=== PATIENT | male | born 1950 | race Caucasian/White ===

== ENCOUNTER 2018-09-22 10:06 | Emergency (ER) | payer OTHER ==
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
[2018-09-22 12:06] VITALS: BP 134/70
== END 2018-09-22 13:44 | disposition home or self-care (01) ==
LOC: EDUNIT#
DX: S29.019A Strain of muscle and tendon of unspecified wall of thorax, initial encounter (principal); M79.672 Pain in left foot; R20.0 Anesthesia of skin; V49.50XA Passenger injured in collision with unspecified motor vehicles in traffic accident, initial encounter; Y92.9 Unspecified place or not applicable; Y93.9 Activity, unspecified; Y99.9 Unspecified external cause status
CPT/HCPCS: 96374; J2270

== ENCOUNTER 2018-09-24 07:15 | Inpatient (IN) | payer OTHER ==
[2018-09-24] MEDS ORDERED: GABAPENTIN 300 MG CAP PO ONE (10:05)
[2018-09-24] MEDS ORDERED: ceFAZolin 2 GM/DEXTROSE 100 ML IV ONE (10:05)
[2018-09-24] MEDS ORDERED: ACETAMINOPHEN 500 MG TAB PO ONE (10:05)
[2018-09-24] MEDS ORDERED: LR 1,000 ML IV ONE (10:07)
[2018-09-24] MEDS ORDERED: BACITRACIN ZINC 14.2 GM OINTTUBE TP ONE (10:24)
[2018-09-24] MEDS ORDERED: EPINEPHrine 1 MG/ML INJ ONE (10:24)
[2018-09-24] MEDS ORDERED: BUPIVACAINE 0.25% 30 ML SDV ONE ×3 (10:24→20:20)
[2018-09-24] MEDS ORDERED: POVIDONE-IODINE 30 GM OINTTUBE TP ONE (10:24)
[2018-09-24] MEDS ORDERED: THROMBIN (BOVINE) 20,000 UNIT VIAL TP ONE ×2 (10:24→14:01)
[2018-09-24] MEDS ORDERED: CHLORHEXIDINE GLUC HIBICLENS 118 ML BTL TP ONE ×2 (10:24→19:09)
[2018-09-24] MEDS ORDERED: BACITRACIN 50,000 UNITS/10 ML SYR IRR ONE (10:25)
[2018-09-24] MEDS ORDERED: fentaNYL 100 MCG/2 ML INJ IV ONE (11:30)
--- NOTE | 2018-09-24 13:04 | PDHPUP ---
History & Physical Update H&P update statement: This history and physical update is based on an assessment of the patient which was completed after admission or registration (within 24 hours), but prior to the surgery/procedure. H&P update: H&P reviewed & patient examined, no change in patient's condition since H&P completed
[2018-09-24] MEDS ORDERED: MIDAZOLAM 2 MG/2 ML VIAL IVP ONE (13:05)
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
[2018-09-24] MEDS ORDERED: PROPOFOL/EMULSION 500 MG/50 ML BOTTLE IV ONE ×3 (13:47→18:29)
[2018-09-24] MEDS ORDERED: PROPOFOL 200 MG/20 ML VIAL ONE (13:47)
[2018-09-24] MEDS ORDERED: fentaNYL 100 MCG/2 ML INJ ONE ×3 (13:47→21:24)
[2018-09-24] MEDS ORDERED: REMIFENTANIL HCL 1 MG VIAL ONE ×3 (13:47→18:29)
[2018-09-24] MEDS ORDERED: CITRATE DEXTROSE SOLN 500 ML BAG ONE (14:47)
[2018-09-24] MEDS ORDERED: MAGNESIUM HYDROXIDE 30 ML UDCUP PO PRN (17:14)
[2018-09-24] MEDS ORDERED: ONDANSETRON 4 MG/2 ML VIAL IVP PRN ×2 (17:14→21:09)
[2018-09-24] MEDS ORDERED: BISACODYL 10 MG SUPP PR PRN (17:14)
[2018-09-24] MEDS ORDERED: ONDANSETRON DISINTEGRATING 4 MG TAB PO PRN (17:14)
[2018-09-24] MEDS ORDERED: diphenhydrAMINE 25 MG CAP PO PRN (17:14)
[2018-09-24] MEDS ORDERED: LACTULOSE 20 GM/30 ML UDCUP PO PRN (17:14)
[2018-09-24] MEDS ORDERED: NALOXONE HCL 0.4 MG/ML INJ IVP PRN ×2 (17:14→21:09)
[2018-09-24] MEDS ORDERED: NS 1,000 ML IV SCH (17:15)
--- NOTE | 2018-09-24 18:03 | PDMN ---
Medical Necessity Medical necessity: Pt meets inpt criteria per MD order and [facility] S- 330, Cervical Fusion, Posterior, Medicare inpt only list and Neurosurg GRG for Vertebral Corpectomy, also Medicare inpt only list. Pt underwent C3-C7 ant/post cervical fusion, C4/5 corpectomy, C6/7 ACDF.
[2018-09-24] MEDS ORDERED: FAMOTIDINE 20 MG TAB PO SCH (21:00)
[2018-09-24] MEDS ORDERED: fentaNYL 100 MCG/2 ML INJ IVP PRN (21:09)
[2018-09-24] MEDS ORDERED: DIAZEPAM 5 MG/ML 1 ML SYR IVP PRN (21:09)
[2018-09-24] MEDS ORDERED: PROMETHAZINE HCL 25 MG/ML INJ IVP PRN (21:09)
--- NOTE | 2018-09-24 21:37 | POSTOPPROG ---
Post Op Note Date of Operation: 09/24/18 Surgeon: Natalio Sandy Application Packager: Javier Soriano PA-C and Yanique Malone PA-C Anesthesiologist: Dr. Bee Anesthesia: GET(General Endotracheal) Pre-op Diagnosis: cervical stenosis Post-op Diagnosis: cervical stenosis Procedure: C4 and C5 corpectomy, ACDF C6/7, posterior C3-C7 fusion Inf/Abcess present in the surg proc area at time of surgery?: No Depth: Deep Incisional (Fascial) EBL: 500-1000 Drains: Davey Delacruz Plan Plan: 68 yo male s/p C4 and C5 corpectomy, ACDF C6/7, anterior plating C3-C7, and posterior C3-C7 fusion - neuro checks - pain control - hard collar - anterior and posterior BUSHRA drains to compression - postop x-rays tomorrow - SCDs, TEDs, lovenox to start POD#3 - PT/OT Exam Awake. Alert Following commands Strength full at 5/5 Sensation intact incisions with dressings c/d/i
[2018-09-24] MEDS ORDERED: HYDROmorphONE/DILAUDID 2 MG/ML INJ ONE (21:38)
--- NOTE | 2018-09-24 21:40 | POSTANESTH ---
Post Anesthetic Evaluation Cardiovascular Status: Normal, Stable Respiratory Status: Normal, Stable Level of Consciousness/Mental Status: Can Participate in Eval Pain Control: Inadeq, Add Tx Required Nausea/Vomiting Control: Adequate, Prn Tx Ordered Complications Possibly Related to Anesthesia: None Noted
[2018-09-24] MEDS: HYDROmorphONE/DILAUDID 2 MG/ML INJ IVP PRN ×5 (21:42→22:52)
[2018-09-24] MEDS ORDERED: DIAZEPAM 5 MG/ML 1 ML SYR ONE (22:02)
[2018-09-24] MEDS: morphINE PCA 30 MG/30 ML PCA IV PRN (23:25)
[2018-09-24] MEDS: POLYETHYLENE GLYCOL 3350 17 GM PKT PO SCH (23:47)
[2018-09-24] MEDS: ALLOPURINOL 100 MG TAB PO SCH (23:48)
[2018-09-25] MEDS ORDERED: VANCOMYCIN HCL/NORMAL SALINE 250 ML IV ONE
[2018-09-25] MEDS: FAMOTIDINE 20 MG TAB PO SCH ×2 (00:26→20:23)
[2018-09-25] MEDS: PREGABALIN 150 MG CAP PO SCH ×3 (00:26→20:23)
[2018-09-25] MEDS: morphINE SR 15 MG TAB PO SCH ×3 (00:26→20:23)
[2018-09-25] MEDS: SENNOSIDES/DOCUSATE SODIUM TAB PO SCH ×4 (00:35→20:12)
[2018-09-25] MEDS: METHOCARBAMOL 750 MG TAB PO PRN ×2 (01:49→06:46)
[2018-09-25] MEDS: DIAZEPAM 5 MG TAB PO PRN (02:56)
[2018-09-25] MEDS: oxyCODONE IR 5 MG TAB PO PRN ×2 (03:45→08:21)
[2018-09-25 05:40] LABS: PLATELET COUNT 239 10^3/uL (150-400)
--- NOTE | 2018-09-25 06:22 | GOP ---
DATE OF OPERATION: 09/24/2018 SURGEON: Natalio Sandy MD NEUROSURGEON: Natalio Sandy MD SOFTWARE DEVELOPER INTERN: 1. Javier Soriano, PAC. 2. Yanique Malone PAC. ANESTHESIA: General endotracheal. 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 PROCEDURE PERFORMED: Complete C3-C4, C4-C5, C5-C6, and C6-C7 anterior cervical diskectomy and arthro desis with complete C4 and C5 vertebral corpectomies and partial C3, C6, and C7 vertebral corpectomie s for decompression of spinal cord. Placement of structural spacers from C3 through C6 and at C6-C7. Use of intraoperative microscopy and fluoroscopy. FINDINGS: ESTIMATED BLOOD LOSS: 250 cc. INDICATIONS: The patient is a 68-year-old man with progressive myelopathic symptoms secondary to sev ere progressive kyphosis and spinal stenosis with spinal cord compression and retrolisthesis of multi ple vertebral bodies in the cervical spine. He presents now for surgical decompression, stabilizatio n, and realignment of his cervical spine. DESCRIPTION OF PROCEDURE: After informed consent was obtained, the patient was taken to the operatin g room and placed in the supine position with the head in the halter retractor system after baseline neuro monitoring signals were obtained. The anterior cervical region was prepped and draped in a stephanie rile fashion. After fluoroscopic localization of the correct levels, the subcutaneous and intramuscu lar tissues were infiltrated with local anesthesia. A horizontal linear incision was then created at the level of the C5 vertebral body. This was carried through the platysmal layer using the monopola r electrocautery and carried in the avascular plane between the sternocleidomastoid and carotid sheat h laterally and the strap muscles, trachea, and esophagus medially down to the prevertebral fascia, w hich was carefully incised with Metzenbaum scissors. There were extremely large osteophytes that req uired chiseling away at the spine and severely distorted anatomy. The double-action rongeurs, Kerris on rongeurs, and [employer] drill system were utilized to carefully remove these gigantic osteophytes, a nd even after removing these, the anatomy was very difficult to identify. In conjunction with x-ray, I was able to identify the C3-C4, C4-C5, and C5-C6 interspaces as well as the C6-C7 interspace, whic h was somewhat of an empty cavity at this point after taking away the osteophytes. I felt that it wa s in the best interest of the patient to include this in the anterior portion of the fusion. The dis traction pins were inserted from C3 through C6 along with the retractor and distraction created acros s the C3 to C6 levels. The disk spaces were carefully identified under microscopic visualization and drilled out and the complete corpectomy was performed at C4 and C5 with the rongeurs and massive flu janet vidya and coarse richardson vidya to control bleeding. It was necessary to undercut C3 and C6 and rem ove quite a bit of the vertebral bodies there, measuring approximately 50% of each, for partial C3 an d C6 vertebral corpectomies, as well. Eventually, the spinal canal and the spinal cord were thorough ly decompressed and a 44 mm structural PEEK spacer was placed from C3 to C6. This was packed with lo komal autograft from the corpectomy defect. Following this, the upper distraction pin was removed and a new distraction pin placed at C7 with distraction across the interspace and a complete diskectomy w as performed there with removal of the posterior longitudinal ligament, as was done at the upper leve ls. The endplates were prepared and a lordotic curve was recreated and the interspace was packed wit h a 12 mm structural PEEK interbody spacer. The distraction was removed and an appropriately sized L and K CastleLoc-P anterior cervical plate was then placed and secured from C3 to C7 with self-drilli ng screws. After reverification of good position of the plate screws and interbody spacers using bip lanar fluoroscopy, the locking mechanisms were engaged. The wound was reinfiltrated with local anest hesia. A drain was placed and the wound was closed in a layered fashion using interrupted Vicryl sut ures followed by Steri-Strips on the skin. COMPLICATIONS: None. DISPOSITION: The patient was repositioned prone for the posterior portion of the operation. /[id number]/MODL
--- NOTE | 2018-09-25 06:32 | GOP ---
DATE OF OPERATION: 09/24/2018 SURGEON: Natalio Sandy MD NEUROSURGEON: Natalio Sandy MD SEWER PIPE LAYER HELPER: MARLEY Randle ANESTHESIA: General endotracheal. 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 PROCEDURE PERFORMED: C3 through T1 posterior segmental (lateral mass and pedicle screw) fixation and posterolateral fusion from C3 to T1 with local autograft and bone morphogenic protein. Use of intra operative microscopy and fluoroscopy and computer volumetric stereotactic navigation. FINDINGS: ESTIMATED BLOOD LOSS: 150 cc. INDICATIONS: The patient is a 68-year-old man with progressive myelopathic symptoms secondary to sev ere progressive kyphosis and spinal stenosis with spinal cord compression and retrolisthesis of multi ple vertebral bodies in the cervical spine. He presents now for surgical decompression, stabilizatio n, and realignment of his cervical spine. DESCRIPTION OF PROCEDURE: After the anterior portion of the procedure was completed, the patient was repositioned prone in the radiolucent Allison bolt header. The posterior cervical region was prepp ed and draped in a sterile fashion. After fluoroscopic localization of the correct levels, the subcu taneous and intramuscular tissues were infiltrated with local anesthesia. A midline linear incision was then created from approximately C3 to C7. This was carried down to the fascial layer, which was then incised using monopolar electrocautery and carried in the subperiosteal plane along the spinous processes and lamina bilaterally. After reverifying the correct levels, the dissection was carried o ut over the facet joints and lateral masses. The C7 to T1 level was noted to be very degenerated and I felt that it was in the best interest of the patient to expose down to T1 and include this in the fusion so as to prevent a junctional kyphosis and reoperation in the short term. This was exposed an d the O-arm neuronavigational system was brought in. Using computer volumetric stereotactic navigati on, lateral mass screws were placed from C3 to C6 and pedicle screws at C7 and T1. After reverifying good position of the screws using intraoperative neurophysiologic testing with monopolar electrostim ulation and interpretation of the potentials by the surgeon along with 3D reconstructed images from t he O-arm, the remaining lamina and facet joints and lateral masses were extensively decorticated and the local autograft from the drilling along with the residual local autograft from the anterior cervi komal procedure/corpectomies and bone morphogenic protein was utilized to perform a posterolateral fusi on from C3 to T1. A drain was then placed and the subcutaneous and intramuscular tissues were reinfi ltrated with local anesthesia. The wound was then closed in a layered fashion using interrupted Vicr yl and running Mersilene suture and Steri-Strips on the skin. COMPLICATIONS: None. DISPOSITION: The patient is currently in the process of being repositioned for extubation. /[id number]/MODL
--- NOTE | 2018-09-25 07:31 | SOAPPROG ---
SOAP Progress Note Assessment/Plan: Assessment: 68 yo male POD #1 sp C4/5 corpectomy and C3-7 ACDF and C3-7 Post decomp/fusion. Doing well Plan: Continue SDU. COntinue Hard collar and both BUSHRA drains Xrays today Advance diet to soft texture Continue BACK CLOSER Discussed with Dr. Miles 09/25/18 07:32 Subjective: awake, alert, pain well controlled this AM States he has new tingling in middle fingers of right hand, otherwise no changes didn't fall asleep until 0430 Objective: Vital Signs Temp Pulse Resp BP Pulse Ox 37.2 C 76 18 139/67 H 98 09/24/18 23:29 09/25/18 04:01 09/25/18 04:01 09/25/18 04:01 09/25/18 04:01 Laboratory Results 09/25/18 05:25 09/25/18 05:25 09/24/18 09/25/18 09/26/18 05:59 05:59 05:59 Intake Total 5651 Output Total 1940 370 Balance 3711 -370 Neuro: A+ox4 follows commands CHAPA, sens +LT 5/5 bilat upper/lower ext BUSHRA: ANT: 145 ml since surgery BUSHRA POST:165 since surgery ICD10 Worksheet Patient Problems: Problems Problem Status Onset Cervical stenosis of spinal canal Acute Cervical stenosis of spinal canal Acute - ICD10 Problem Qualifiers (1) Cervical stenosis of spinal canal (2) Cervical stenosis of spinal canal
[2018-09-25] MEDS: morphINE PCA 30 MG/30 ML PCA IV PRN ×2 (07:37→20:34)
[2018-09-25] MEDS: PANTOPRAZOLE SODIUM 40 MG TAB PO SCH (08:21)
[2018-09-25] MEDS: ALLOPURINOL 100 MG TAB PO SCH ×2 (08:21→22:44)
[2018-09-25] MEDS: POLYETHYLENE GLYCOL 3350 17 GM PKT PO SCH ×3 (08:51→20:04)
[2018-09-25] MEDS: FENOFIBRATE 145 MG TAB PO SCH (11:35)
[2018-09-25] MEDS: morphINE SR 30 MG TAB PO SCH (12:26)
--- NOTE | 2018-09-25 15:31 | ASMTCASEMG ---
Living Arrangements What is your living Answers: With Spouse arrangement? Who do you live with? Type Of Residence What kind of residence do Answers: House you live in? 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 He was admitted for surgical decompression, stabilzation, and realignment of his cervical spine. OT/PT ordered. Patient is a and states he has a claim number from [facility] to cover his [facility] and post op services. Financial services was notified. D/C plan TBD. CM will follow. Date Signed: 09/25/2018 03:31 PM Electronically Signed By:Josi Maynard LCSW
--- NOTE | 2018-09-25 16:01 | ASMTCMCOM ---
CM Note CM Note Notes: Mercedes from [facility] called to let us know she follows this patient. Her number is [phone]. She tries to visit the veterans she works with while they are in the hospital and offered to assist with coordination of care. Mercedes says patient has a P[facility], [facility] but he mostly just makes referrals for care. [facility] has approved home care agencies they use. [facility] at [phone] is one he has used in the past. Mercedes is hoping however, patient will qualify for rehab programs. CM will follow. Date Signed: 09/25/2018 04:00 PM Electronically Signed By:Josi Maynard LCSW
[2018-09-26] MEDS: SENNOSIDES/DOCUSATE SODIUM TAB PO SCH ×2 (07:41→21:15)
[2018-09-26] MEDS: ALLOPURINOL 100 MG TAB PO SCH (07:41)
[2018-09-26] MEDS: PANTOPRAZOLE SODIUM 40 MG TAB PO SCH (07:41)
[2018-09-26] MEDS: FENOFIBRATE 145 MG TAB PO SCH (07:41)
[2018-09-26] MEDS: morphINE SR 15 MG TAB PO SCH (07:42)
[2018-09-26] MEDS: POLYETHYLENE GLYCOL 3350 17 GM PKT PO SCH ×2 (07:42→16:01)
[2018-09-26] MEDS: oxyCODONE IR 5 MG TAB PO PRN ×5 (07:43→21:44)
[2018-09-26] MEDS: METHOCARBAMOL 750 MG TAB PO PRN ×3 (07:43→21:44)
[2018-09-26] MEDS: PREGABALIN 150 MG CAP PO SCH ×2 (07:43→21:45)
--- NOTE | 2018-09-26 08:37 | NEUSURGPN ---
Date of Surgery: 09/24/18 Post Op Day: 2 Assessment/Plan: Assessment: 68 yo male POD #2 sp C4/5 corpectomy and C3-7 ACDF and C3-7 Post decomp/fusion. 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 Miles Subjective: Having posterior neck pain Objective: AxO x3 CHAPA x4 5/5 BUE, BLE Dressings x2 CDI BUSHRA x2 patent Collar in place Neuro Check Frequency: per routine Urinary Catheter in Place: No Catheter Insertion Date: 09/24/18 - Physician Discussed Patient with DrTracey: Vika Neurosurgery Physical Exam - Vitals, I&O, Labs I and O 09/25/18 09/26/18 09/27/18 05:59 05:59 05:59 Intake Total 5651 Output Total 1940 1400 250 Balance 3711 -1400 -250 Weight 78.925 kg Intake: Oral (ml) 410 IV Intake (ml) 4600 IV Infused (ml) 641 Ns 1,000 ml @ 75 mls/hr 391 IV CONT ROBEL Rx#: [id number] Vancomycin HCl/Normal 250 Saline 250 ml @ 250 mls/ hr IV ONCE ONE Rx#: [id number] Output: Urine (ml) 450 1200 250 Catheter 450 350 Urinal 850 250 Estimated Blood Loss (ml) 1200 Emesis (ml) 0 BUSHRA Drain Output (ml) 290 200 Anterior Neck Davey 140 55 [place] Posterior Neck Davey 150 145 [place] Other: Number of Voids Toilet 1 Number of Stools Urinal 1 Post Void Residual Scan Volume (ml) Urinal 240 Vital Signs Temp Pulse Resp BP Pulse Ox 37.2 C 106 H 15 137/56 H 92 09/26/18 04:14 09/26/18 06:26 09/26/18 06:26 09/26/18 06:26 09/26/18 06:26 Laboratory Results 09/25/18 05:25 09/25/18 05:25 ICD10 Worksheet Patient Problems: Problems Problem Status Onset Cervical stenosis of spinal canal Acute Cervical stenosis of spinal canal Acute
[2018-09-26] MEDS: DIAZEPAM 5 MG TAB PO PRN ×2 (10:12→23:20)
[2018-09-26] MEDS: morphINE SR 30 MG TAB PO SCH ×2 (12:06→19:11)
[2018-09-26] MEDS: FAMOTIDINE 20 MG TAB PO SCH (21:15)
[2018-09-27] MEDS: METHOCARBAMOL 750 MG TAB PO PRN ×4 (04:04→21:00)
[2018-09-27] MEDS: oxyCODONE IR 5 MG TAB PO PRN ×3 (04:04→21:01)
[2018-09-27] MEDS: morphINE SR 30 MG TAB PO SCH ×2 (05:46→21:27)
[2018-09-27] MEDS: PANTOPRAZOLE SODIUM 40 MG TAB PO SCH (08:12)
[2018-09-27] MEDS: SENNOSIDES/DOCUSATE SODIUM TAB PO SCH ×2 (08:13→21:00)
[2018-09-27] MEDS: FENOFIBRATE 145 MG TAB PO SCH (08:13)
[2018-09-27] MEDS: ALLOPURINOL 100 MG TAB PO SCH (08:13)
[2018-09-27] MEDS: ENOXAPARIN 40 MG/0.4 ML SYR SC SCH (08:14)
[2018-09-27] MEDS: POLYETHYLENE GLYCOL 3350 17 GM PKT PO SCH (08:14)
[2018-09-27] MEDS: PREGABALIN 75 MG CAP PO SCH ×2 (08:30→21:02)
--- NOTE | 2018-09-27 09:56 | NEUSURGPN ---
Date of Surgery: 09/24/18 Post Op Day: 3 Assessment/Plan: Assessment: 68 yo male POD #3 sp C4/5 corpectomy and C3-7 ACDF and C3-7 Post decomp/fusion. Plan: -Sitting in chair doing well this am -Continue hard collar, will have Box Builder fit with [place] collar -Post op xrays show stable hardware without evidence of complication -Advance diet per Speech therapy recs -Pharmacy adjusted home pain medications in MAR -PT/OT/ST Discussed with Dr. Miles Subjective: Sitting in chair, posterior neck pain Objective: AxO x3 CHAPA x4 5/5 BUE, BLE Dressings x2 CDI BUSHRA x2 patent Collar in place Neuro Check Frequency: per routine Urinary Catheter in Place: No Catheter Insertion Date: 09/24/18 - Physician Discussed Patient with : Vika Neurosurgery Physical Exam - Vitals, I&O, Labs I and O 09/26/18 09/27/18 09/28/18 05:59 05:59 05:59 Output Total 1400 1180 75 Balance -1400 -1180 -75 Output: Urine (ml) 1200 1100 75 Catheter 350 Toilet 300 Urinal 850 800 75 BUSHRA Drain Output (ml) 200 80 Anterior Neck Davey 55 30 [place] Posterior Neck Davey 145 50 [place] Other: Intake Quantity Yes Sufficient Number of Voids Incontinence 1 Toilet 1 Number of Stools Urinal 1 Post Void Residual Scan Volume (ml) Urinal 240 Vital Signs Temp Pulse Resp BP Pulse Ox 37.3 C 90 16 117/65 100 09/27/18 09:02 09/27/18 09:02 09/27/18 09:02 09/27/18 09:02 09/27/18 09:02 Laboratory Results 09/25/18 05:25 09/25/18 05:25 ICD10 Worksheet Patient Problems: Problems Problem Status Onset Cervical stenosis of spinal canal Acute Cervical stenosis of spinal canal Acute
[2018-09-27] MEDS ORDERED: morphINE SR 15 MG TAB PO SCH (12:00)
[2018-09-27] MEDS: FAMOTIDINE 20 MG TAB PO SCH (21:03)
[2018-09-28] MEDS: oxyCODONE IR 5 MG TAB PO PRN ×4 (03:02→20:21)
[2018-09-28] MEDS ORDERED: diphenhydrAMINE 12.5 MG/5 ML UDCUP PO PRN (07:53)
[2018-09-28] MEDS: PANTOPRAZOLE SODIUM 40 MG TAB PO SCH (07:55)
[2018-09-28] MEDS: SENNOSIDES/DOCUSATE SODIUM TAB PO SCH ×2 (08:01→20:14)
[2018-09-28] MEDS: PREGABALIN 75 MG CAP PO SCH ×2 (08:01→20:13)
[2018-09-28] MEDS: POLYETHYLENE GLYCOL 3350 17 GM PKT PO SCH (08:01)
[2018-09-28] MEDS: FENOFIBRATE 145 MG TAB PO SCH (08:02)
[2018-09-28] MEDS: ALLOPURINOL 100 MG TAB PO SCH (08:02)
[2018-09-28] MEDS: ENOXAPARIN 40 MG/0.4 ML SYR SC SCH (08:03)
--- NOTE | 2018-09-28 08:38 | NEUSURGPN ---
Assessment/Plan: Assessment: 68 yo male POD #4 sp C4/5 corpectomy and C3-7 ACDF and C3-7 Post decomp/fusion. Plan: -Continue hard collar, will have Chauffeur fit with [place] collar -Post op xrays show stable hardware without evidence of complication -Advance diet per Speech therapy recs -Added Mscontin this am. Patient pain lvl 9/10. Will talk with pharmacy to ensure we have his baseline home meds correct -PT/OT/ST Discussed with Dr. Miles Subjective: Posterior neck pain /10. Feels like arm are getting stronger Objective: AxO x3 CHAPA x4 5/5 BUE, BLE Dressings x2 CDI Collar in place Catheter Insertion Date: 09/24/18 - Physician Discussed Patient with : Vika Neurosurgery Physical Exam - Vitals, I&O, Labs I and O 09/27/18 09/28/18 09/29/18 05:59 05:59 05:59 Output Total 1180 975 Balance -1180 -975 Output: Urine (ml) 1100 975 Toilet 300 Urinal 800 975 BUSHRA Drain Output (ml) 80 Anterior Neck Daevy 30 [place] Posterior Neck Davey 50 [place] Other: Intake Quantity Yes Sufficient Number of Voids Incontinence 1 Urinal 2 Vital Signs Temp Pulse Resp BP Pulse Ox 36.6 C 86 17 149/79 H 100 09/27/18 23:12 09/27/18 23:12 09/27/18 23:12 09/27/18 23:12 09/27/18 23:12 Laboratory Results 09/25/18 05:25 09/25/18 05:25 ICD10 Worksheet Patient Problems: Problems Problem Status Onset Cervical stenosis of spinal canal Acute Cervical stenosis of spinal canal Acute
[2018-09-28] MEDS ORDERED: LANSOPRAZOLE SUSP 30MG/10ML UDSYR (Adult) PO SCH (09:00)
[2018-09-28] MEDS ORDERED: morphINE SR 15 MG TAB PO SCH ×2 (09:00→14:00)
[2018-09-28] MEDS ORDERED: morphINE SR 15 MG TAB PO ONE (10:45)
[2018-09-28] MEDS: ACETAMINOPHEN 325 MG TAB PO PRN ×2 (11:36→20:22)
[2018-09-28] MEDS: DIAZEPAM 5 MG TAB PO PRN (11:36)
--- NOTE | 2018-09-28 16:09 | ASMTCMCOM ---
CM Note CM Note Notes: Spoke cody Mercedes from [facility] to let her know SNF rehab has been recommended for patient. Mercedes gave me a list of the VA approved SNF rehab programs. Referrals were sent out to all of the facilities. We are awaiting their replies. Attempted to speak with patient, however, he was asleep and I could not rouse him. Mercedes is going to visit with patient today. She will assure him that we are working with all his VA requirements. CM will follow. Date Signed: 09/28/2018 04:09 PM Electronically Signed By:Josi Maynard LCSW
[2018-09-28] MEDS: FAMOTIDINE 20 MG TAB PO SCH (20:12)
[2018-09-28] MEDS: morphINE SR 30 MG TAB PO SCH (20:12)
[2018-09-29] MEDS: DIAZEPAM 5 MG TAB PO PRN ×2 (00:41→21:47)
[2018-09-29] MEDS: oxyCODONE IR 5 MG TAB PO PRN ×3 (02:30→21:46)
[2018-09-29] MEDS: ALLOPURINOL 100 MG TAB PO SCH (08:39)
[2018-09-29] MEDS: morphINE SR 30 MG TAB PO SCH ×3 (08:40→21:34)
[2018-09-29] MEDS: FENOFIBRATE 145 MG TAB PO SCH (08:40)
[2018-09-29] MEDS: PANTOPRAZOLE SODIUM 40 MG TAB PO SCH (08:41)
--- NOTE | 2018-09-29 08:41 | SOAPPROG ---
SOAP Progress Note Assessment/Plan: Assessment: 68 yo M POD #5 C4/5 corpectomy, C6/7 ACDF with C3-7 plating and C3- 7 posterior fusion. Plan: neuro: stable pain control still an issue, will increase MScontin PT/OT scd/janet/lovenox for dvt prophylaxis post op x-rays look good DC emergency planner looking at SNF placement please call with neuro changes 09/29/18 08:38 Subjective: continued neck pain, some pain in left triceps Objective: Vital Signs Temp Pulse Resp BP Pulse Ox 36.8 C 90 16 166/85 H 91 L 09/29/18 08:00 09/29/18 08:00 09/29/18 08:00 09/29/18 08:00 09/29/18 08:00 Laboratory Results 09/25/18 05:25 09/25/18 05:25 09/28/18 09/29/18 09/30/18 05:59 05:59 05:59 Intake Total 400 Output Total 975 950 Balance -975 -550 AAOx4, +FC PERRL, EOMI, no facial droop 5/5, right deltoid 4/5 + light touch C/D/I X2 ICD10 Worksheet Patient Problems: Problems Problem Status Onset Cervical stenosis of spinal canal Acute Cervical stenosis of spinal canal Acute
[2018-09-29] MEDS: PREGABALIN 75 MG CAP PO SCH ×2 (08:42→21:35)
[2018-09-29] MEDS: POLYETHYLENE GLYCOL 3350 17 GM PKT PO SCH (08:42)
[2018-09-29] MEDS: SENNOSIDES/DOCUSATE SODIUM TAB PO SCH ×2 (08:42→21:35)
[2018-09-29] MEDS ORDERED: morphINE SR 15 MG TAB PO SCH (08:42)
[2018-09-29] MEDS: ENOXAPARIN 40 MG/0.4 ML SYR SC SCH (08:52)
[2018-09-29] MEDS ORDERED: morphINE SR 15 MG TAB PO ONE (09:45)
--- NOTE | 2018-09-29 15:03 | ASMTCMCOM ---
CM Note CM Note Notes: PT rec SNF. OT rec inpatient rehab, voicemail left for Nayla at [facility] inpatient rehab and consult order requested to be input by CIRA Soriano. [facility] reports they have no VA contract. Referral sent to in Allscripts today, Kassy with admissions met w pt today. to reach out to [place] to find out pt coverage, pt has stated he is 90% covered and then said 100% covered. If pt is at least 90% covered Kassy reports can accept and pt has SNF benefit. Nel at working on finding out coverage, may know by end of business today. Unique to [place] SNF: If pt covered then a contract will be emailed to this CM, and once complete will take 48 hours to be approved. Zuleyma with [facility] completed on-site assessment this afternoon. Pt non-triggering PASRR completed. CM to follow. Date Signed: 09/29/2018 03:02 PM Electronically Signed By:NORRIS Zacarias
[2018-09-29] MEDS: FAMOTIDINE 20 MG TAB PO SCH (21:36)
[2018-09-30] MEDS: oxyCODONE IR 5 MG TAB PO PRN ×3 (03:10→20:07)
[2018-09-30] MEDS: DIAZEPAM 5 MG TAB PO PRN ×3 (03:22→20:07)
--- NOTE | 2018-09-30 08:06 | SOAPPROG ---
SOAP Progress Note Assessment/Plan: Assessment: 68 yo M POD #6 C4/5 corpectomy, C6/7 ACDF with C3-7 plating and C3- 7 posterior fusion. 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 Objective: Vital Signs Temp Pulse Resp BP Pulse Ox 36.7 C 91 18 133/67 H 98 09/29/18 23:52 09/29/18 23:52 09/29/18 23:52 09/29/18 23:52 09/29/18 23:52 Laboratory Results 09/25/18 05:25 09/25/18 05:25 09/29/18 09/30/18 10/01/18 05:59 05:59 05:59 Intake Total 400 740 Output Total 950 Balance -550 740 AAOx4, +FC PERRL, EOMI, no facial droop 5/5 + light touch C/D/I x 2 ICD10 Worksheet Patient Problems: Problems Problem Status Onset Cervical stenosis of spinal canal Acute Cervical stenosis of spinal canal Acute
[2018-09-30] MEDS: FENOFIBRATE 145 MG TAB PO SCH (10:26)
[2018-09-30] MEDS: ALLOPURINOL 100 MG TAB PO SCH (10:26)
[2018-09-30] MEDS: SENNOSIDES/DOCUSATE SODIUM TAB PO SCH ×2 (10:27→20:02)
[2018-09-30] MEDS: PREGABALIN 75 MG CAP PO SCH ×2 (10:27→20:03)
[2018-09-30] MEDS: PANTOPRAZOLE SODIUM 40 MG TAB PO SCH (10:27)
[2018-09-30] MEDS: POLYETHYLENE GLYCOL 3350 17 GM PKT PO SCH (10:28)
[2018-09-30] MEDS: morphINE SR 30 MG TAB PO SCH ×4 (10:34→20:03)
[2018-09-30] MEDS: morphINE SR 15 MG TAB PO SCH ×2 (10:34→20:02)
[2018-09-30] MEDS: ENOXAPARIN 40 MG/0.4 ML SYR SC SCH (10:34)
[2018-09-30] MEDS ORDERED: morphINE SR 30 MG TAB PO SCH (12:00)
[2018-09-30] MEDS: ACETAMINOPHEN 325 MG TAB PO PRN (13:41)
--- NOTE | 2018-09-30 14:53 | ASMTCMCOM ---
CM Note CM Note Notes: Kassy with [facility] admissions reports pt has SNF VA coverage. Pt VA SNF application faxed to DOMENIC Nathalia Yair [phone]. [phone] F:[phone] (original is in chart). Meg with [facility] [phone] c:[phone] reports they can accept pt. Pt likely accepted at [facility] and [place]. In the afternoon pt states he called [facility] and they can accept, [facility] reports they are not contracted with VA. Pt has some SNF options, awaiting VA authorization which can take 48 hours. CM to follow. Date Signed: 09/30/2018 02:52 PM Electronically Signed By:NORRIS Zacarias
[2018-09-30] MEDS: FAMOTIDINE 20 MG TAB PO SCH (20:03)
[2018-10-01] MEDS: oxyCODONE IR 5 MG TAB PO PRN ×4 (00:01→23:56)
--- NOTE | 2018-10-01 08:55 | NEUSURGPN ---
Assessment/Plan: Assessment/Plan: Assessment: 68 yo M POD #7 C4/5 corpectomy, C6/7 ACDF with C3-7 plating and C3- 7 posterior fusion. Plan: neuro: stable but confused this morning. Re-oriented when he woke up more. 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 Complaining of arm pain and shoulder pain. O: NAD, VSS confused at place, date, situation, then re-oriented Speech fluent BUE moving with good strength but somewhat pain limited Sensation intact to lt touch Incision c/d/i- no induration- dressed Catheter Insertion Date: 09/24/18 - Physician Discussed Patient with : Vika Neurosurgery Physical Exam - Vitals, I&O, Labs I and O 09/30/18 10/01/18 10/02/18 05:59 05:59 05:59 Intake Total 740 750 Balance 740 750 Intake: Oral (ml) 740 750 Other: Number of Voids Toilet 2 2 Number of Stools Toilet 1 Vital Signs Temp Pulse Resp BP Pulse Ox 37.3 C 102 H 16 130/99 H 96 10/01/18 00:00 10/01/18 00:00 10/01/18 00:00 10/01/18 00:00 10/01/18 00:00 Laboratory Results 09/25/18 05:25 09/25/18 05:25 ICD10 Worksheet Patient Problems: Problems Problem Status Onset Cervical stenosis of spinal canal Acute Cervical stenosis of spinal canal Acute
[2018-10-01] MEDS: FENOFIBRATE 145 MG TAB PO SCH (09:39)
[2018-10-01] MEDS: ENOXAPARIN 40 MG/0.4 ML SYR SC SCH (09:39)
[2018-10-01] MEDS: ALLOPURINOL 100 MG TAB PO SCH (09:40)
[2018-10-01] MEDS: morphINE SR 30 MG TAB PO SCH ×3 (09:40→21:11)
[2018-10-01] MEDS: PANTOPRAZOLE SODIUM 40 MG TAB PO SCH (09:40)
[2018-10-01] MEDS: POLYETHYLENE GLYCOL 3350 17 GM PKT PO SCH (09:40)
[2018-10-01] MEDS: morphINE SR 15 MG TAB PO SCH ×2 (09:40→21:11)
[2018-10-01] MEDS: SENNOSIDES/DOCUSATE SODIUM TAB PO SCH ×2 (09:46→21:10)
[2018-10-01] MEDS: PREGABALIN 75 MG CAP PO SCH ×2 (09:46→21:10)
[2018-10-01] MEDS: ACETAMINOPHEN 325 MG TAB PO PRN (09:47)
--- NOTE | 2018-10-01 15:43 | ASMTCMCOM ---
CM Note CM Note Notes: Still waiting on VA SNF authorization. Pt will choose from [facility], [place] or [place] [facility]. Pt seems to finally understand today [facility] does not have VA contract. Pt reports he has Medicare, which would be secondary so does not matter for the SNF placement, we still must wait for the VA auth. ROLAND to follow. Date Signed: 10/01/2018 03:42 PM Electronically Signed By:NORRIS Zacarias
[2018-10-01] MEDS: FAMOTIDINE 20 MG TAB PO SCH (21:10)
[2018-10-02] MEDS: DIAZEPAM 5 MG TAB PO PRN (00:53)
--- NOTE | 2018-10-02 08:49 | NEUSURGPN ---
Assessment/Plan: Assessment: 68 yo M POD #8 C4/5 corpectomy, C6/7 ACDF with C3-7 plating and C3- 7 posterior fusion. 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 States he has RTC tear in R shoulder that is bothering him more post op. Posterior neck pain btw shoulder blades. Objective: AAOx3 NAD VSS MAEx4 Motor 5/5 BUE with exception of R delt 5-/5 C collar on Incisions cdi +LT Urinary Catheter in Place: No Catheter Insertion Date: 09/24/18 - Physician Discussed Patient with : Vika Neurosurgery Physical Exam - Vitals, I&O, Labs I and O 10/01/18 10/02/18 10/03/18 05:59 05:59 05:59 Intake Total 750 2775 Output Total 300 250 Balance 750 2475 -250 Intake: Oral (ml) 750 2775 Output: Urine (ml) 300 250 Incontinence 250 Toilet 300 Other: Intake Quantity Yes Sufficient Number of Voids Incontinence 1 Toilet 2 1 Number of Stools Toilet 1 1 Vital Signs Temp Pulse Resp BP Pulse Ox 36.6 C 91 16 124/75 H 95 10/01/18 23:30 10/01/18 23:30 10/01/18 23:30 10/01/18 23:30 10/01/18 23:30 Laboratory Results 09/25/18 05:25 09/25/18 05:25 ICD10 Worksheet Patient Problems: Problems Problem Status Onset Cervical stenosis of spinal canal Acute Cervical stenosis of spinal canal Acute
[2018-10-02] MEDS: ENOXAPARIN 40 MG/0.4 ML SYR SC SCH (09:12)
[2018-10-02] MEDS: SENNOSIDES/DOCUSATE SODIUM TAB PO SCH (09:13)
[2018-10-02] MEDS: ACETAMINOPHEN 325 MG TAB PO PRN (09:13)
[2018-10-02] MEDS: PREGABALIN 75 MG CAP PO SCH (09:14)
[2018-10-02] MEDS: morphINE SR 30 MG TAB PO SCH ×3 (09:14→16:01)
[2018-10-02] MEDS: FENOFIBRATE 145 MG TAB PO SCH (09:14)
[2018-10-02] MEDS: POLYETHYLENE GLYCOL 3350 17 GM PKT PO SCH (09:15)
[2018-10-02] MEDS: PANTOPRAZOLE SODIUM 40 MG TAB PO SCH (09:15)
[2018-10-02] MEDS: morphINE SR 15 MG TAB PO SCH (09:15)
[2018-10-02] MEDS: ALLOPURINOL 100 MG TAB PO SCH (09:55)
[2018-10-02] MEDS: oxyCODONE IR 5 MG TAB PO PRN (13:18)
--- NOTE | 2018-10-02 16:12 | PDIAF ---
- Diagnosis Code Status: Full Code - Medication Management Discharge Medications: electronically signed and located in the Home Medication List. - Orders Services needed: Registered Nurse, Physical Therapy, Occupational Therapy, Speech Language Pathologist Isolation Type: Contact Isolation Diet Recommendation: no restrictions on diet Diet Texture: Dysphagia 3 - Advanced - Moist, Bite-Size, Thin Liquids, Meds Whole in Puree Wound Care Instructions: check incisions daily. Call [phone] (Dr. Sandy's office) if there is any redness, pain, drainage. Activity/Weight Bearing Restrictions: no lifting over 10 lbs x 8 weeks. No cervical range of motion Equipment: Cervical collar Additional Instructions: Wear cervical collar at all times call [phone] with any questions concerns - Follow Up Care Current Providers and Referrals: NONE *PRIMARY CARE P,. [Primary Care Provider] - Natalio Sandy MD [Medical Doctor] -
[2018-10-02 16:53] VITALS: BP 99/63
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
--- NOTE | 2018-10-02 17:11 | ASMTCMCOM ---
CM Note CM Note Notes: Late today the [place] SNF auth was approved, pt chose [facility] which is able to accept today. Orders sent in Allscripts. Kassy with admissions arranged wc transport with [facility] for 1899. WILL Pastrana to call report. Date Signed: 10/02/2018 05:10 PM Electronically Signed By:NORRIS Zacarias
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
== END 2018-10-02 19:09 | DRG 472 ==
LOC: F3N 09:17 → F2N 23:05 → F3N 09-26 13:22
PROVIDERS: ADMIT Neurological Surgery; ATTEND Neurological Surgery
DX: M40.292 Other kyphosis, cervical region (principal); M47.12 Other spondylosis with myelopathy, cervical region; M48.02 Spinal stenosis, cervical region; Z87.891 Personal history of nicotine dependence; Z86.14 Personal history of Methicillin resistant Staphylococcus aureus infection
CPT/HCPCS: 92526-GN; 92610-GN; 97110-GO; 97116-GP; 97161-GP; 97166-GO; 97530-GO; 97530-GP; 97535-GO; C1713; J0171; J0690; J1170; J1650; J2250; J2270; J2704; J3010; J3360; J3370

== ENCOUNTER 2019-05-13 10:39 | Inpatient (IN) | payer OTHER | END 2019-05-16 15:00 | disposition home health service (06) | LOC: F3N 10:39 ==